=== PATIENT | female | born 1960 | race Caucasian/White ===

== ENCOUNTER 2017-05-15 16:27 | Observation (INO) | payer BC, OTHER ==
[2017-05-15] VITALS (8 sets, daily range): BP systolic 116–154; BP diastolic 62–75; PULSE 68–101; RESP 18–20; TEMP 96.7–97.9; O2SAT 98–100
[~2017-05-15] VITALS: Ht 154.9 cm; Wt 60.5 kg
[~2017-05-15 16:27] MED LIST: ALBUPOW9; DULE200A; MACR100C PO; OMPR20CCR PO; POLY119S PO; PROBCAP4 PO; PYRI200T4 PO; SUCR1TAB PO; TAMS0.4C67 PO
--- NOTE | 2017-05-15 16:45 | RADRPT ---
EXAM DATE/TIME: 05/15/2017 16:33 [facility] COMPARISON: No previous studies available for comparison. INDICATIONS : Stroke alert. Slurred speech, right sided headache, left arm and leg weakness and numbness. RADIATION DOSE: 61.38 CTDIvol (mGy) This report was called by Dr. Hughes to Dr. Gibson at 1642 MEDICAL HISTORY : Unable to obtain. SURGICAL HISTORY : Unable to obtain. ENCOUNTER: Initial ACUITY: 1 day PAIN SCALE: 6/10 LOCATION: cranial TECHNIQUE: Multiple contiguous axial images were obtained of the head. Using automated exposure control and adj ustment of the mA and/or kV according to patient size, radiation dose was kept as low as reasonably a chievable to obtain optimal diagnostic quality images. DICOM format image data is available electro nically for review and comparison. FINDINGS: CEREBRUM: The ventricles are normal for age. No evidence of midline shift, mass lesion, hemorrhage or acute in farction. No extra-axial fluid collections are seen. POSTERIOR FOSSA: The cerebellum and brainstem are intact. The 4th ventricle is midline. The cerebellopontine angle i s unremarkable. EXTRACRANIAL: The visualized portion of the orbits is intact. SKULL: The calvaria is intact. No evidence of skull fracture. CONCLUSION: Negative exam. No hemorrhage. Jose Antonio Hughes MD on May 15, 2017 at 16:41 Board Certified Radiologist. This report was verified electronically.
[2017-05-15 16:49] LABS: AUTOMATED NEUTROPHIL # 4.9 TH/MM3 (1.8-7.7); BASOPHIL % 0.5 % (0.0-2.0); EOSINOPHIL % 0.6 % (0.0-4.0); HEMATOCRIT 37.8 % (35.0-46.0); HEMOGLOBIN 12.6 GM/DL (11.6-15.3); LYMPH % 28.3 % (9.0-44.0); LYMPHOCYTE # 2.2 TH/MM3 (1.0-4.8); MEAN CELL VOLUME 89.3 FL (80.0-100.0); MEAN CORPUSCULAR HEMOGLOBIN 29.7 PG (27.0-34.0); MEAN CORPUSCULAR HGB CONC 33.3 % (32.0-36.0); MEAN PLATELET VOLUME 7.5 FL (7.0-11.0); MONO % 7.1 % (0.0-8.0); MONOCYTE # 0.5 TH/MM3 (0-0.9); NEUT % 63.5 % (16.0-70.0); PLATELET COUNT 255 TH/MM3 (150-450); RED BLOOD COUNT 4.24 MIL/MM3 (4.00-5.30); RED CELL DISTRIBUTION WIDTH 13.1 % (11.6-17.2); WHITE BLOOD COUNT 7.7 TH/MM3 (4.0-11.0)
--- NOTE | 2017-05-15 16:55 | PD ---
HPI Chief Complaint: Stroke alert Time Seen by Provider: 16:38 Travel History International Travel<30 days: No Contact w/Intl Traveler<30days: No History of Present Illness HPI 57yo F with PMH of asthma, migraine headache presents to the ED with c/o left arm and left leg weakness and numbness today. Also with left face numbness. Said she finish work at 3:30pm and she did not have these symptoms. Then she started having right sided headache and left sided weakness and numbness while driving. Pt said she had chest pain and sob since yesterday and it felt like her asthma exacerbation and she was using her inhaler. Denies any nausea, vomiting, abdominal pain. PFSH Past Medical History Asthma: Yes Diminished Hearing: No Gastrointestinal Disorders: Yes (IBS, Ischemic bowel ) GERD: Yes Kidney Stones: Yes Menopausal: Yes Past Surgical History Other Surgery: Yes (CYSTOPLASTY BLADDER SLING) Social History Alcohol Use: No Tobacco Use: No Substance Use: No Allergies-Medications (Allergen,Severity, Reaction): Coded Allergies: hydromorphone (Unverified Allergy, Severe, 05/15/17) morphine (Unverified Allergy, Severe, 05/15/17) diclofenac (Unverified Allergy, Intermediate, re: colitis, 05/15/17) etodolac (Unverified Allergy, Intermediate, re: colitis, 05/15/17) flurbiprofen (Unverified Allergy, Intermediate, re: colitis, 05/15/17) ibuprofen (Unverified Allergy, Intermediate, re: colitis, 05/15/17) indomethacin (Unverified Allergy, Intermediate, re: colitis, 05/15/17) ketoprofen (Unverified Allergy, Intermediate, re: colitis, 05/15/17) ketorolac (Unverified Allergy, Intermediate, re: colitis, 05/15/17) naproxen (Unverified Allergy, Intermediate, re: colitis, 05/15/17) oxaprozin (Unverified Allergy, Intermediate, re: colitis, 05/15/17) levofloxacin (Unverified Adverse Reaction, Intermediate, Joint Pain, ) metronidazole (Unverified Adverse Reaction, Intermediate, Joint Pain, ) Uncoded Allergies: NARCOTICS (Adverse Reaction, Intermediate, Hypotension, 10/08/12) pT STATES PASSES OUT, NAUSEA/VOMITING, LOW bp ALL NARCOTICS SPECIFICALLY Morphine, Dilaudid. Reported Meds & Prescriptions Reported Meds & Active Scripts Active Reported Potassium Chloride ER (Potassium Chloride) 8 Meq Cap 8 Meq PO DAILY Miralax Powder (Polyethylene Glycol 3350 Powder) 17 Gm Powd 17 Gm PO DAILY Mix and dissolve one measuring cap-ful (17 grams) in water or juice. Magnesium Citrate 100 Mg Tab 500 Mg PO DAILY PRN Citalopram (Citalopram Hydrobromide) 20 Mg Tab 20 Mg PO DAILY Nebusal Neb (Sodium Chloride) 3 % Neb 2 Ml NEB Q6HR NEB Proventil Hfa 6.7 GM Inh (Albuterol Sulfate) 90 Mcg/Act Aer 2 Puff INH Q4-6H PRN Review of Systems Except as stated in HPI: all other systems reviewed are Neg Physical Exam Narrative GENERAL: 57yo F in mild distress. SKIN: Focused skin assessment warm/dry. HEAD: Atraumatic. Normocephalic. EYES: Pupils equal and round. No scleral icterus. No injection or drainage. ENT: No nasal bleeding or discharge. Mucous membranes pink and moist. NECK: Trachea midline. No JVD. CARDIOVASCULAR: Regular rate and rhythm. No murmur appreciated. RESPIRATORY: No accessory muscle use. Clear to auscultation. Breath sounds equal bilaterally. GASTROINTESTINAL: Abdomen soft, non-tender, nondistended. MUSCULOSKELETAL: No obvious deformities. No clubbing. No cyanosis. No edema. NEUROLOGICAL: Awake and alert. Decreased sensation in left face. Decreased sensation in left arm and leg. +1 for sensation. Left arm had some effort against gravity +2. Left leg had some effort against gravity +2. Mild dysarthria +1. NIH stroke 6. PSYCHIATRIC: Appropriate mood and affect; insight and judgment normal. Data Data Last Documented VS Vital Signs Date Time Temp Pulse Resp B/P (MAP) Pulse Ox O2 Delivery O2 Flow Rate FiO2 05/15/17 18:37 100 21 05/15/17 18:36 79 18 144/70 (94) Room Air 05/15/17 16:[address] Brain W/O Iv Contrast(Rout) (05/15/17 16:31) Cta Brain W Iv Contrast W 3d (05/15/17 16:38) Cta Neck W Iv Contrast W 3d (05/15/17 16:38) Prothrombin Time / Inr (Pt) (05/15/17 16:38) Act Partial Throm Time (Ptt) (05/15/17 16:38) Complete Blood Count With Diff (05/15/17 16:38) Basic Metabolic Panel (Bmp) (05/15/17 16:38) Type And Screen (05/15/17 16:38) Electrocardiogram (05/15/17 ) Troponin I (05/15/17 16:38) Chest, Single Ap (05/15/17 ) Iodixanol 320 Inj (Rad Ct) (Visipaque 32 (05/15/17 17:01) Metoclopramide Inj (Reglan Inj) (05/15/17 17:30) Methylprednisolone So Succ Inj (Solumedr (05/15/17 18:30) Albuterol-Ipratropium Neb (Duoneb Neb) (05/15/17 18:30) Nih Stroke Scale - Nihss .On admission and discharge (05/15/17 18:27) Neuro Checks Q4H (05/15/17 18:27) Activity Bed Rest (05/15/17 18:27) Nursing Bedside Swallow Assess .ONCE (05/15/17 18:27) Scd Bilateral/Knee High CANDACE.QSHIFT (05/15/17 18:27) Diet Npo (05/15/17 Dinner) Hemoglobin (Hgb) A1c (05/15/17 18:27) Lipid Profile (05/16/17 06:00) Resp Oxygen Nc Stroke (05/15/17 ) ^ Hold Medication (05/15/17 18:27) Consult Neurology (05/15/17 ) Sodium Chloride 0.9% Flush (Ns Flush) (05/15/17 21:00) Sodium Chloride 0.9% Flush (Ns Flush) (05/15/17 18:30) Bedside Glucose CANDACE.CSUGAR (05/15/17 18:27) ^ Discontinue Insulin Orders (05/15/17 18:27) Insulin Aspart Supplemtl Scale (Novolog (05/15/17 21:00) Dextrose 50% In Joanna (Vial) Inj (D50w (Vi (05/15/17 18:30) Glucagon Inj (Glucagon Inj) (05/15/17 18:30) Consultative Sales Associate / Telemetry CANDACE.Q8H (05/15/17 18:27) Consult Stroke Navigator (05/15/17 ) Albuterol Hfa Inh (Proair Hfa Inh) (05/15/17 18:30) Citalopram (Celexa) (05/16/17 09:00) Polyethylene Glycol (Miralax) (05/16/17 09:00) Patient Own Medication (05/15/17 19:00) Albuterol-Ipratropium Neb (Duoneb Neb) (05/15/17 20:00) Prednisone (Deltasone) (05/15/17 21:00) Admit Order (Ed Use Only) (05/15/17 18:38) Labs Laboratory Tests Test 05/15/17 16:45 White Blood Count 7.7 TH/MM3 Red Blood Count 4.24 MIL/MM3 Hemoglobin 12.6 GM/DL Hematocrit 37.8 % Mean Corpuscular Volume 89.3 FL Mean Corpuscular Hemoglobin 29.7 PG Mean Corpuscular Hemoglobin Concent 33.3 % Red Cell Distribution Width 13.1 % Platelet Count 255 TH/MM3 Mean Platelet Volume 7.5 FL Neutrophils (%) (Auto) 63.5 % Lymphocytes (%) (Auto) 28.3 % Monocytes (%) (Auto) 7.1 % Eosinophils (%) (Auto) 0.6 % Basophils (%) (Auto) 0.5 % Neutrophils # (Auto) 4.9 TH/MM3 Lymphocytes # (Auto) 2.2 TH/MM3 Monocytes # (Auto) 0.5 TH/MM3 Eosinophils # (Auto) 0.0 TH/MM3 Basophils # (Auto) 0.0 TH/MM3 CBC Comment DIFF FINAL Differential Comment Prothrombin Time 9.4 SEC Prothromb Time International Ratio 0.9 RATIO Activated Partial Thromboplast Time 23.7 SEC Blood Urea Nitrogen 14 MG/DL Creatinine 0.68 MG/DL Random Glucose 88 MG/DL Calcium Level 9.0 MG/DL Sodium Level 137 MEQ/L Potassium Level 3.6 MEQ/L Chloride Level 103 MEQ/L Carbon Dioxide Level 22.9 MEQ/L Anion Gap 11 MEQ/L Estimat Glomerular Filtration Rate 89 ML/MIN Hemoglobin A1c 5.9 % Troponin I LESS THAN 0.02 NG/ML MDM Medical Decision Making Medical Screen Exam Complete: Yes Emergency Medical Condition: Yes Interpretation(s) EKG: NSR 58bpm. Normal axis. No ST segment elevation or depression. Differential Diagnosis CVA vs. complex migraine Narrative Course 57yo F with PMH of asthma and migraine here with complaint of right sided headache and then left side numbness and weakness. Pt came in as stroke alert and last normal was 3:30pm. Pt went to CT scan and CT brain negative. Discussed with Dr. Sofia and decided to start TPA. However, when I went to get consent, pt's symptoms improved rapidly. As I was explaining risks, benefits and alternatives, pt said her headache has improved and now able to feel left face, left arm and left leg. Strength in left arm and leg also improving and only mildly weaker than right side. Since symptoms are improving so rapidly, do not think TPA is needed at this time. Patient also agrees and does not want TPA. Updated Dr. Sofia of this and she said to place routine neurology consult and document. Labs reviewed, no leukocytosis. H/H normal. Troponin negative. CXR negative. CT brain negative. CTA neck showed mild soft atherosclerotic plaquing at origin of right internal carotid causing some focal mild narrowing. No significant stenosis. CTA head normal. Pt reevaluated at bedside and said her migraine is coming back so reglan ordered. She is not wheezing but wants nebulizing treatments so ordered them. Pt given reglan for headache. Discussed with Dr. Brian and accepted to her service. Critical Care Narrative Aggregate critical care time was 45 minutes. Time to perform other separately billable procedures was not included in the critical care time. My time did not include minutes spent treating any other patients simultaneously or on activities that did not directly contribute to the patient's treatment. The services I provided to this patient were to treat and/or prevent clinically significant deterioration that could result in: cardiovascular collapse or . I provided critical care services requiring my management, as noted below: Chart data review, documentation time, medication orders and management, vital sign assessments/reviewing monitor data, ordering and reviewing lab tests, ordering and interpreting/reviewing x-rays and diagnostic studies, care of the patient and discussion of the patient with the admitting physicians. Diagnosis Primary Impression: Migraine Qualified Codes: G43.909 - Migraine, unspecified, not intractable, without status migrainosus Additional Impression: TIA (transient ischemic attack) Qualified Codes: G45.9 - Transient cerebral ischemic attack, unspecified Admitting Information Admitting Physician Requests: Observation Yolanda Gibson DO May 15, 2017 16:55
[2017-05-15] MEDS ORDERED: IODIXANOL 320 MG/ML 10 ML VIAL (for Rad CT) IVCONTRAST ONE (17:01)
[2017-05-15 17:08] LABS: CHLORIDE 103 MEQ/L (98-107); SODIUM (NA) 137 MEQ/L (136-145)
[2017-05-15 17:11] LABS: BICARBONATE 22.9 MEQ/L (21.0-32.0); GLUCOSE,RANDOM 88 MG/DL (74-106)
[2017-05-15 17:12] LABS: BLOOD UREA NITROGEN 14 MG/DL (7-18)
[2017-05-15 17:15] LABS: CREATININE 0.68 MG/DL (0.50-1.00); GLOMERULAR FILTRATION RATE 89 ML/MIN (>89)
--- NOTE | 2017-05-15 17:18 | RADRPT ---
EXAM DATE/TIME: 05/15/2017 17:05 [facility] COMPARISON: CHEST SINGLE AP, March 21, 2015, 13:43. INDICATIONS : Chest pain and shortness of breath. MEDICAL HISTORY : Asthma. SURGICAL HISTORY : None. ENCOUNTER: Initial ACUITY: 1 day PAIN SCORE: 0/10 LOCATION: Bilateral chest FINDINGS: No new focal pleural or parenchymal opacities. The cardiomediastinal contours are unremarkable. Osse ous structures are intact. CONCLUSION: No acute abnormality or significant interval change. Clifton Pedroza MD on May 15, 2017 at 17:15 Board Certified Radiologist. This report was verified electronically.
--- NOTE | 2017-05-15 17:18 | RADRPT ---
EXAM DATE/TIME: 05/15/2017 16:48 [facility] COMPARISON: No previous studies available for comparison. INDICATIONS : Stroke alert. Slurred speech, right sided headache, left arm and leg weakness and numbness. IV CONTRAST: 85 cc Visipaque (iodixanol) IV ; Cumulative dose for multiple exams. RADIATION DOSE: 42.23 CTDIvol (mGy) ; Combined studies MEDICAL HISTORY : Unable to obtain. SURGICAL HISTORY : Unable to obtain. ENCOUNTER: Initial ACUITY: 1 day PAIN SCALE: 8/10 LOCATION: cranial TECHNIQUE: Volumetric scanning was performed using a multi-row detector CT scanner. The data was post processed with a variety of visualization algorithms including full volume maximum intensity projection, multi -planar sliding thin slab reformation, curved planar reformation, and surface rendering techniques. Using automated exposure control and adjustment of the mA and/or kV according to patient size, radiat ion dose was kept as low as reasonably achievable to obtain optimal diagnostic quality images. DICO M format image data is available electronically for review and comparison. FINDINGS: There is excellent visualization of the major intracranial arteries out to the second-order branch ve ssels. There is no evidence for aneurysm, vessel truncation or stenosis, and no evidence for vascula r malformation. There are bilateral patent posterior communicating arteries. CONCLUSION: Normal examination for a patient of this age. Suresh Da Silva MD on May 15, 2017 at 17:14 Board Certified Radiologist. This report was verified electronically.
[2017-05-15 17:19] LABS: TROPONIN I LESS THAN 0.02 NG/ML (0.02-0.05)
[2017-05-15] MEDS ORDERED: METOCLOPRAMIDE INJ 10 MG in SODIUM CHLORIDE 0.9% INJ 50 ML IV ONE (17:30)
--- NOTE | 2017-05-15 17:31 | RADRPT ---
EXAM DATE/TIME: 05/15/2017 16:48 [facility] COMPARISON: No previous studies available for comparison. INDICATIONS : Stroke alert. Slurred speech, right sided headache, left arm and leg weakness and numbness. IV CONTRAST: 85 cc Visipaque (iodixanol) IV ; Cumulative dose for multiple exams. RADIATION DOSE: 42.23 CTDIvol (mGy) ; Combined studies MEDICAL HISTORY : Unalbe to obtain. SURGICAL HISTORY : Unable to obtain. ENCOUNTER: Initial ACUITY: 1 day PAIN SCALE: 0/10 LOCATION: neck Elevated flow velocities and ICA/CCA ratios have been found to correlate with increased degrees of vessel stenosis, calculated as percentage of diameter relative to a normal segment of distal ICA/CCA. TECHNIQUE: Volumetric scanning was performed using a multirow detector CT scanner. The data was post processed with a variety of visualization algorithms including full-volume maximum intensity projection, multip lanar sliding thin-slab reformation, curved-planar reformation, and surface-rendering techniques. Us ing automated exposure control and adjustment of the mA and/or kV according to patient size, radiatio n dose was kept as low as reasonably achievable to obtain optimal diagnostic quality images. DICOM f ormat image data is available electronically for review and comparison. FINDINGS: AORTIC ARCH: There is a three-vessel origin of the great vessels from the aorta. No evidence of ostial narrowing. RIGHT CAROTID: The common carotid artery is intact. Focal mild narrowing at the origin of the right internal carotid artery. However, no high-grade stenosis is seen. The internal carotid artery is patent throughout it s extent.. The external carotid artery is intact. LEFT CAROTID: The common carotid artery is intact. The carotid bulb has a normal configuration without ulceration or narrowing. The focal calcified plaques at the carotid bifurcation and proximal left internal garcia tid artery. The internal carotid artery lumen is smooth without stenosis. The external carotid arter y is intact. VERTEBRALS: The vertebral arteries have a symmetric diameter. No stenotic lesions are seen. CONCLUSION: 1. Mild soft atherosclerotic plaquing at the origin of the right internal carotid causing some focal mild narrowing. No focal high-grade or significant stenosis is demonstrated. 2. Calcified plaques at the left carotid bifurcation and proximal left internal carotid artery withou t focal high-grade or significant stenosis. 1. Suresh Da Silva MD on May 15, 2017 at 17:26 Board Certified Radiologist. This report was verified electronically.
[2017-05-15] MEDS ORDERED: MIRA3350 PO (17:43)
[2017-05-15] MEDS ORDERED: MAGN100T2 PO (17:43)
[2017-05-15] MEDS ORDERED: ALBU6.7H INH (17:43)
[2017-05-15] MEDS ORDERED: POTA8CAP PO (17:43)
[2017-05-15] MEDS ORDERED: SODI3NEB NEB (17:43)
[2017-05-15] MEDS ORDERED: CITA20TA4 PO (17:43)
[2017-05-15 17:51] LABS: INTERNATIONAL NORMALIZED RATIO 0.9 RATIO; PROTHROMBIN TIME - PATIENT 9.4 SEC (9.8-11.6)
[2017-05-15] MEDS: RESP: ALBUTEROL 2.5 MG/IPRATROPIUM 0.5 MG NEB (SCH) INH ×2 (18:26→18:27)
[2017-05-15] MEDS ORDERED: SODIUM CHLORIDE 0.9% FLUSH 10 ML FLUSH IV FLUSH PRN (18:30)
[2017-05-15] MEDS ORDERED: ALBUTEROL SULFATE 90 MCG/ACT HFA 8 GM INHALER INH PRN (18:30)
[2017-05-15] MEDS ORDERED: DEXTROSE 50% IN WATER 50 ML VIAL(D50) IV PUSH PRN (18:30)
[2017-05-15] MEDS ORDERED: methylPREDNISolone SOD SUCC 125 MG/2 ML VIAL IV PUSH ONE (18:30)
[2017-05-15] MEDS ORDERED: GLUCAGON 1 MG/ML VIAL OTHER PRN (18:30)
[2017-05-15] MEDS: RESP: ALBUTEROL 2.5 MG/IPRATROPIUM 0.5 MG NEB (SCH) NEB (18:59)
[2017-05-15] MEDS ORDERED: MAGNESIUM CITRATE 500 MG PO PRN (19:00)
[2017-05-15 21:54] LABS: HEMOGLOBIN A1C 5.9 % (4.3-6.0)
[2017-05-15] MEDS: predniSONE 20 MG TAB PO SCH (22:21)
[2017-05-15] MEDS: SODIUM CHLORIDE 0.9% FLUSH 10 ML FLUSH IV FLUSH SCH (22:21)
[2017-05-15] MEDS: INSULIN ASPART SUPPLEMENTAL SCALE SQ SCH (22:29)
--- NOTE | 2017-05-15 23:49 | EKG ---
Date Performed: 05/15/2017 Time Performed: 17:15:20 PTAGE: 57 years EKG: Sinus rhythm NORMAL ECG PREVIOUS TRACING : 03/21/2015 13.47 Since the prior tracing, there has been no significant craig DOCTOR: Deonte Willard Interpretating Date/Time 05/15/2017 23:47:47
[2017-05-16] VITALS (9 sets, daily range): BP systolic 94–136; BP diastolic 57–71; PULSE 74–112; RESP 19–20; TEMP 96.4–97.8; O2SAT 95–99
[2017-05-16] MEDS: RESP: ALBUTEROL 2.5 MG/IPRATROPIUM 0.5 MG NEB (SCH) NEB ×3 (07:39→20:35)
[2017-05-16] MEDS: INSULIN ASPART SUPPLEMENTAL SCALE SQ SCH ×4 (08:00→21:25)
--- NOTE | 2017-05-16 10:02 | RADRPT ---
EXAM DATE/TIME: 05/16/2017 09:28 [facility] COMPARISON: No previous studies available for comparison. INDICATIONS : CVA. Left sided numbness now resolved. MEDICAL HISTORY : Gastroesophageal reflux disease. Asthma. SURGICAL HISTORY : Bladder sling. Left bicep. ENCOUNTER: Initial ACUITY: 2 day PAIN SCORE: 0/10 LOCATION: head TECHNIQUE: Multiplanar, multisequence MRI of the brain was performed without contrast. FINDINGS: CEREBRUM: The ventricles are normal for age. No evidence of midline shift, mass lesion, hemorrhage or acute in farction. No extraaxial fluid collections are seen. The pituitary gland and suprasellar cistern are normal in configuration. WHITE MATTER: Minimal white matter changes. POSTERIOR FOSSA: The cerebellum and brainstem are intact. The 4th ventricle is midline. The cerebellopontine angle is unremarkable. The cerebellar tonsils are normal in position. DIFFUSION IMAGING: No focal areas of restricted diffusion are seen. No evidence of acute infarction. EXTRACRANIAL: The visualized portions of the orbits and paranasal sinuses are unremarkable. CONCLUSION: Minimal, chronic white matter changes. Otherwise negative. Jose Antonio Hughes MD on May 16, 2017 at 9:55 Board Certified Radiologist. This report was verified electronically.
[2017-05-16] MEDS: POLYETHYLENE GLYCOL 17 GM PKG PO SCH (11:03)
[2017-05-16] MEDS: CITALOPRAM HYDROBROMIDE 20 MG TAB PO SCH (11:04)
[2017-05-16] MEDS: predniSONE 20 MG TAB PO SCH ×2 (11:04→21:26)
[2017-05-16] MEDS: SODIUM CHLORIDE 0.9% FLUSH 10 ML FLUSH IV FLUSH SCH ×2 (11:04→21:24)
[2017-05-16 12:11] LABS: CHOLESTEROL/ HDL RATIO 2.59 RATIO; HDL CHOLESTEROL 96.8 MG/DL (40.0-60.0)
[2017-05-16] MEDS ORDERED: ASPIRIN EC 325 MG TABEC PO SCH (17:45)
[2017-05-16] MEDS: ASPIRIN EC 81 MG TABEC PO SCH (18:22)
[2017-05-16 19:20] LABS: ALT (GPT) 18 U/L (10-53); AST (GOT) 9 U/L (15-37); C-REACTIVE PROTEIN LESS THAN 0.29 MG/DL (0.00-0.30)
--- NOTE | 2017-05-16 19:51 | HHI.HP ---
[facility] Primary Care Physician Marcos Ellis, Admission Diagnosis TIA vs. complex migraine Diagnoses: Travel History International Travel<30 Days: No Contact w/Intl Traveler <30 Da: No Traveled to Known Affected Are: No History of Present Illness Ms. Ceja is a 57 year old female. She is in the hospital secondary to an acute onset of left arm and leg weakness. This persisted most of the night but has resolved by the time she is seen today. She has a history of atypical migraines with transient blindness that lasted a few minutes. She's never had such a degree of neurological deficit for migraines before. She reports that she was driving and she had an acute onset of a headache which shows not typical of onset of her migraines. After that she had a gradual onset of left arm and leg weakness which ended up resulting in facility. Imaging showed no signs of bleed, tumor, or stroke, including MRI of brain. Etiology may be atypical migraine versus TIA. No pain or headache described and patient is visited today. No persistence of neurological deficit. Review of Systems Constitutional: DENIES: Fatigue, Fever, Night Sweats Eyes: DENIES: Blurred vision, Diplopia, Eye inflammation Ears, nose, mouth, throat: DENIES: Tinnitus, Hearing loss, Vertigo Respiratory: DENIES: Cough, Wheezing, Shortness of breath Cardiovascular: DENIES: Chest pain, Palpitations, Syncope Gastrointestinal: DENIES: Abdominal pain, Black stools, Bloody stools Musculoskeletal: DENIES: Joint pain, Muscle aches, Stiffness, Joint Swelling Integumentary: DENIES: Abnormal pigmentation, Pruritus, Rash, Nail changes Hematologic/lymphatic: DENIES: Bruising, Lymphadenopathy Immunologic/allergic: DENIES: Eczema, Urticaria Neurologic: COMPLAINS OF: Headache, Localized weakness, Poor Balance, DENIES: Abnormal gait, Paresthesias Psychiatric: DENIES: Anxiety, Confusion, Hallucinations Past Family Social History Past Medical History Asthma Irritable bowel syndrome Ischemic bowel history Gastroesophageal reflux disease Nephrolithiasis Past Surgical History Cystoplasty/sling Reported Medications Reported Meds & Active Scripts Active Reported Potassium Chloride ER (Potassium Chloride) 8 Meq Cap 8 Meq PO DAILY Miralax Powder (Polyethylene Glycol 3350 Powder) 17 Gm Powd 17 Gm PO DAILY Mix and dissolve one measuring cap-ful (17 grams) in water or juice. Magnesium Citrate 100 Mg Tab 500 Mg PO DAILY PRN Citalopram (Citalopram Hydrobromide) 20 Mg Tab 20 Mg PO DAILY Nebusal Neb (Sodium Chloride) 3 % Neb 2 Ml NEB Q6HR NEB Proventil Hfa 6.7 GM Inh (Albuterol Sulfate) 90 Mcg/Act Aer 2 Puff INH Q4-6H PRN Allergies: Coded Allergies: hydromorphone (Unverified Allergy, Severe, 05/15/17) morphine (Unverified Allergy, Severe, 05/15/17) diclofenac (Unverified Allergy, Intermediate, re: colitis, 05/15/17) etodolac (Unverified Allergy, Intermediate, re: colitis, 05/15/17) flurbiprofen (Unverified Allergy, Intermediate, re: colitis, 05/15/17) ibuprofen (Unverified Allergy, Intermediate, re: colitis, 05/15/17) indomethacin (Unverified Allergy, Intermediate, re: colitis, 05/15/17) ketoprofen (Unverified Allergy, Intermediate, re: colitis, 05/15/17) ketorolac (Unverified Allergy, Intermediate, re: colitis, 05/15/17) naproxen (Unverified Allergy, Intermediate, re: colitis, 05/15/17) oxaprozin (Unverified Allergy, Intermediate, re: colitis, 05/15/17) levofloxacin (Unverified Adverse Reaction, Intermediate, Joint Pain, ) metronidazole (Unverified Adverse Reaction, Intermediate, Joint Pain, ) Uncoded Allergies: NARCOTICS (Adverse Reaction, Intermediate, Hypotension, 10/08/12) pT STATES PASSES OUT, NAUSEA/VOMITING, LOW bp ALL NARCOTICS SPECIFICALLY Morphine, Dilaudid. Active Ordered Medications Administered Medications Medications (Trade) Dose Ordered Sig/El Route PRN Reason Start Time Stop Time Status Last Admin Dose Admin Sodium Chloride (NS Flush) 2 ml BID IV FLUSH 05/15/17 21:00 05/16/17 11:04 Insulin Aspart (NovoLOG SUPPLEMENTAL SCALE) 1 ACHS SQ 05/15/17 21:00 05/15/17 22:29 Citalopram Hydrobromide (CeleXA) 20 mg DAILY PO 05/16/17 09:00 05/16/17 11:04 Polyethylene Glycol (Miralax) 17 gm DAILY PO 05/16/17 09:00 05/16/17 11:03 Albuterol/ Ipratropium (Duoneb Neb) 1 ampule Q6HR WHILE AWAKE NEB NEB 05/15/17 20:00 05/16/17 14:27 Prednisone (Deltasone) 20 mg BID PO 05/15/17 21:00 05/16/17 11:04 Aspirin (Ecotrin Ec) 81 mg DAILY PO 05/16/17 18:11 05/16/17 18:22 Family History Strokes in mother and sister Social History No smoking No alcohol abuse No drug abuse Physical Exam Vital Signs Vital Signs Date Time Temp Pulse Resp B/P (MAP) Pulse Ox O2 Delivery O2 Flow Rate FiO2 05/16/17 16:00 97.2 112 20 94/68 (77) 96 05/16/17 11:21 96.9 90 19 136/71 (92) 95 05/16/17 08:00 97.8 100 20 125/64 (84) 99 05/16/17 07:42 98 21 05/16/17 04:00 96.7 86 20 117/59 (78) 96 05/16/17 00:00 96.4 74 20 122/57 (78) 96 05/15/17 22:41 82 18 98 05/15/17 22:32 96.7 101 20 122/67 (85) 98 05/15/17 22:12 84 18 124/68 (86) 98 Room Air Physical Exam GENERAL: NAD, A&Ox3 HEAD: Normocephalic. NECK: Supple, trachea midline. No lymphadenopathy. EYES: No scleral icterus. No injection or drainage. CARDIOVASCULAR: Regular rate and rhythm without murmurs, gallops, or rubs. RESPIRATORY: Breath sounds equal bilaterally. No accessory muscle use. GASTROINTESTINAL: Abdomen soft, non-tender, nondistended. MUSCULOSKELETAL: No cyanosis, or edema. SKIN: Warm and dry. NEURO: No focal neurological deficitis. Laboratory Laboratory Tests Test 05/16/17 06:30 05/16/17 18:30 Triglycerides Level 36 Cholesterol Level 251 LDL Cholesterol 147 HDL Cholesterol 96.8 Cholesterol/HDL Ratio 2.59 Aspartate Amino Transf (AST/SGOT) 9 Alanine Aminotransferase (ALT/SGPT) 18 C-Reactive Protein LESS THAN 0.29 Thyroid Stimulating Hormone 3rd Gen 0.355 Result Diagram: 05/15/17164405/15/171644 [facility] Risk Assessment: No/Low Risk (score <= 1) Caprini Risk Assessment Model Point Value = 1 Point Value = 2 Point Value = 3 Point Value = 5 Age 41-60 Minor surgery BMI > 25 kg/m2 Swollen legs Varicose veins or History of unexplained or recurrent spontaneous Oral contraceptives or hormone replacement Sepsis (< 1 month) Serious lung disease, including pneumonia (< 1 month) Abnormal pulmonary function Acute myocardial infarction Congestive heart failure (< 1 month) History of inflammatory bowel disease Medical patient at bed rest Age 61-74 Arthroscopic surgery Major open surgery (> 45 min) Laparoscopic surgery (> 45 min) Malignancy Confined to bed (> 72 hours) Immobilizing plaster cast Central venous access Age >= 75 History of VTE Family history of VTE Factor V Leiden Prothrombin [id number] Lupus anticoagulant Anticardiolipin antibodies Elevated serum homocysteine Heparin-induced thrombocytopenia Other congenital or acquired thrombophilia Stroke (< 1 month) Elective arthroplasty Hip, pelvis, or leg fracture Acute spinal cord injury (< 1 month) Prophylaxis Regimen Total Risk Factor Score Risk Level Prophylaxis Regimen 0-1 Low Early ambulation 2 Moderate Order ONE of the following: *Sequential Compression Device (SCD) *Heparin 5000 units SQ BID 3-4 Higher Order ONE of the following medications: *Heparin 5000 units SQ TID *Enoxaparin/Lovenox 40 mg SQ daily (WT < 150 kg, CrCl > 30 mL/min) *Enoxaparin/Lovenox 30 mg SQ daily (WT < 150 kg, CrCl > 10-29 mL/min) *Enoxaparin/Lovenox 30 mg SQ BID (WT < 150 kg, CrCl > 30 mL/min) AND/OR *Sequential Compression Device (SCD) 5 or more Highest Order ONE of the following medications: *Heparin 5000 units SQ TID (Preferred with Epidurals) *Enoxaparin/Lovenox 40 mg SQ daily (WT < 150 kg, CrCl > 30 mL/min) *Enoxaparin/Lovenox 30 mg SQ daily (WT < 150 kg, CrCl > 10-29 mL/min) *Enoxaparin/Lovenox 30 mg SQ BID (WT < 150 kg, CrCl > 30 mL/min) AND *Sequential Compression Device (SCD) Assessment and Plan Problem List: (1) Migraine ICD Code: G43.909 - Migraine, unspecified, not intractable, without status migrainosus Status: Acute (2) TIA (transient ischemic attack) ICD Code: G45.9 - Transient cerebral ischemic attack, unspecified Status: Acute Assessment and Plan 57-year-old female admitted secondary to TIA versus complex migraine with left- sided weakness TIA versus Migraine Left-sided weakness Neurology following DANIELLE planned Daily aspirin Monitor for any recurrence of symptoms MRI is negative for CVA Asthma Irritable bowel syndrome Ischemic bowel history No exacerbations Follow clinically Gastroesophageal reflux disease Nephrolithiasis Asymptomatic DVT prophylaxis SCDs Avoiding strong blood thinners for now given unclear etiology of neurologic deficit including TIA Problem Qualifiers (1) Migraine: Qualified Codes: G43.909 - Migraine, unspecified, not intractable, without status migrainosus (2) TIA (transient ischemic attack): Qualified Codes: G45.9 - Transient cerebral ischemic attack, unspecified Poncho Kolb MD May 16, 2017 19:51
--- NOTE | 2017-05-16 20:03 | MB ---
cc: Juvenal Pimentel MD, David J MD DATE OF CONSULT: 05/16/2017 HISTORY OF PRESENT ILLNESS: A 57-year-old right-handed woman with history of peptic ulcer disease, irritable bowel with constipation. She had 1 miscarriage many years ago. No blood clots. She has had headaches since her 20s. She had 2 episodes where she went blind and black in her vision for about 3 minutes. Her headache used come on with bilateral scintillations, and she went to a chiropractor because she was having headaches fairly frequently in 2016. When she went to the chiropractor, she has not had hardly any headaches ever since. The headache is usually bifrontal and temporal. She has never had any asymmetrical weakness or numbness with them, but yesterday she was driving, had an onset of a right-sided headache which was fairly severe and lasted about 12 hours. Then she had chest pain at the onset of it also and then numbness on the left side and weakness on the left side, which she said she was flaccid on the left. It seemed to evidently come back sometime in the next 12 hours and, by this morning, she was back to normal. She had some chest pain and shortness of breath. She felt like it was increased asthma. She came into the ER. They were going to do tPA. When they went to consent the patient, her symptoms rapidly improved. The headache then got better. She was able to feel the left face, arm and leg. Strength in her left arm and leg also started to improve, only mildly weaker on the right side. REVIEW OF SYSTEMS: She denies any hypertension, diabetes, hypercholesterolemia, [place], CABG, cardiac arrhythmia, stent, angioplasty, AFib, coumadin, renal, hepatic or pulmonary disease, thyroid disease, lupus, ulcer, cancer, seizure. SOCIAL HISTORY: She is not a smoker or drinker. She lives by herself. FAMILY HISTORY: Positive for cancer in her father. Negative for seizure, negative for stroke. Positive for CAD in her mother. Positive for stroke in her sister when she was about 58 and her mother when she was older. Positive for migraine in her mother, her sisters and herself. ALLERGIES: SHE IS ALLERGIC TO HYDROMORPHONE, MORPHINE, DICLOFENAC, ANY KIND OF IBUPROFEN, NSAIDS, LEVOFLOXACIN, METRONIDAZOLE, NARCOTICS. MEDICATIONS: Proventil, citalopram 20 mg a day, magnesium, potassium. PHYSICAL EXAMINATION: She has been in sinus rhythm, afebrile, 112, 20, 94/68. Initially her blood pressure was 151/72. NECK: There were no carotid or vertebral bruits. HEART: Regular rhythm. I did not detect a murmur. NEUROLOGIC: Pupils are equal. Visual arriaga are full. Extraocular movements intact without nystagmus. Face is symmetric with normal sensation. Her temporals are nontender bilaterally. Tongue was midline. There is no drift. She had normal strength in upper and lower extremities bilaterally. DTRs are 2+ and symmetric throughout. Toes are downgoing bilaterally. Pinprick is intact throughout. She is not ataxic on finger to nose. There is no ankle clonus. Gait is steady. Speech is fluent. IMAGING STUDIES: MRI of the brain does not show any acute infarcts nor any old infarcts. There are 2 small tiny white matter changes on her left hemisphere. She had a CTA of the neck and [place] which showed some mild right soft plaque on the carotid on the right. CT of the head was read as normal. CT scan of the brain was read as normal. CTAs do look negative. Review of the CTA: The CTA appears to show an intact transverse sinus and posterior sagittal sinus, although we do not get quite to see all the way to the top. LABORATORY DATA: CBC was normal. UA negative. Coags normal. Basic metabolic profile was normal. Hemoglobin A1c, calcium, troponin normal. LDL cholesterol is 147. IMPRESSION: Quite possibly this was a complicated migraine, especially since it lasted so long with a negative MRI. Of interest is she seemed to get better in the emergency room and I am not sure if that happened when they talked about the tPA or not. What I have recommended is to get a transesophageal echocardiogram, Holter monitor, hypercoagulable screen and some additional blood work. Have cardiology see her with the chest pain, and I will be following up with you in the hospital. We will start her on a baby aspirin a day and she needs to get started on a statin. Just for completeness sake, do an MR renogram. MD INGA Sam//jake , 05:34 PM , 07:47 PM
[2017-05-16] MEDS ORDERED: ATORVASTATIN 40 MG TAB PO SCH (21:00)
[2017-05-16 22:04] LABS: FOLATE 14.5 NG/ML (3.1-17.5); FREE T4 0.93 NG/DL (0.76-1.46)
[2017-05-17] VITALS (12 sets, daily range): BP systolic 113–136; BP diastolic 64–68; PULSE 77–116; RESP 18–20; TEMP 96.3–98.3; O2SAT 97–98
[2017-05-17] MEDS ORDERED: MENTHOL LOZENGE BUCCAL ONE (00:30)
[2017-05-17] MEDS ORDERED: diphenhydrAMINE HCL 25 MG CAP PO ONE (01:00)
[2017-05-17] MEDS: SODIUM CHLOR 0.9% 1000 ML INJ 1,000 ML IV SCH ×2 (06:43→06:52)
[2017-05-17] MEDS: SODIUM CHLORIDE 0.9% FLUSH 10 ML FLUSH IV FLUSH SCH ×2 (07:55→20:03)
[2017-05-17] MEDS: INSULIN ASPART SUPPLEMENTAL SCALE SQ SCH ×2 (08:00→12:00)
[2017-05-17] MEDS: ASPIRIN EC 81 MG TABEC PO SCH (08:04)
[2017-05-17] MEDS: CITALOPRAM HYDROBROMIDE 20 MG TAB PO SCH (08:05)
[2017-05-17] MEDS: POLYETHYLENE GLYCOL 17 GM PKG PO SCH (08:06)
[2017-05-17] MEDS: predniSONE 20 MG TAB PO SCH ×2 (08:06→20:02)
[2017-05-17] MEDS: RESP: ALBUTEROL 2.5 MG/IPRATROPIUM 0.5 MG NEB (SCH) NEB ×2 (08:21→14:16)
[2017-05-17 09:40] LABS: HEMATOCRIT 37.1 % (35.0-46.0); HEMOGLOBIN 12.2 GM/DL (11.6-15.3); MEAN CELL VOLUME 89.7 FL (80.0-100.0); MEAN CORPUSCULAR HEMOGLOBIN 29.5 PG (27.0-34.0); MEAN CORPUSCULAR HGB CONC 32.9 % (32.0-36.0); MEAN PLATELET VOLUME 7.7 FL (7.0-11.0); PLATELET COUNT 234 TH/MM3 (150-450); RED BLOOD COUNT 4.13 MIL/MM3 (4.00-5.30); RED CELL DISTRIBUTION WIDTH 13.3 % (11.6-17.2); WHITE BLOOD COUNT 12.5 TH/MM3 (4.0-11.0)
[2017-05-17] MEDS ORDERED: INFLUENZA VIRUS VACCINE (QUADRIVALENT) 0.5 ML SYR IM ONE (10:00)
[2017-05-17 10:15] LABS: CHLORIDE 105 MEQ/L (98-107); SODIUM (NA) 140 MEQ/L (136-145)
[2017-05-17 10:18] LABS: CALCIUM 8.6 MG/DL (8.5-10.1)
[2017-05-17 10:19] LABS: ALBUMIN 3.3 GM/DL (3.4-5.0); BICARBONATE 23.9 MEQ/L (21.0-32.0); BLOOD UREA NITROGEN 14 MG/DL (7-18); GLUCOSE,RANDOM 147 MG/DL (74-106)
[2017-05-17 10:22] LABS: ALT (GPT) 16 U/L (10-53); AST (GOT) 12 U/L (15-37); CREATININE 0.72 MG/DL (0.50-1.00); GLOMERULAR FILTRATION RATE 83 ML/MIN (>89)
[2017-05-17 10:23] LABS: TOTAL BILIRUBIN ADULT 0.3 MG/DL (0.2-1.0); TOTAL PROTEIN 6.7 GM/DL (6.4-8.2)
[2017-05-17 10:25] LABS: ALKALINE PHOSPHATASE 69 U/L (45-117)
--- NOTE | 2017-05-17 15:16 | HHI.PR ---
Subjective Remarks Patient had an allergic reaction to Lipitor overnight. This has been discontinued. She says she also tried on enteric-coated aspirin at a separate time and had GI upset including abdominal pain, cramping, and dyspepsia. She does not wish to continue the aspirin. DANIELLE pending. Objective Vital Signs Date Time Temp Pulse Resp B/P (MAP) Pulse Ox O2 Delivery O2 Flow Rate FiO2 05/17/17 12:00 97.6 80 18 127/65 (85) 97 05/17/17 08:20 98 21 05/17/17 08:00 97.9 82 18 113/67 (82) 97 05/17/17 04:00 96.3 84 20 136/64 (88) 97 05/17/17 00:00 96.8 100 20 125/64 (84) 98 05/16/17 23:00 90 05/16/17 20:35 97 21 05/16/17 20:00 96.4 94 20 122/57 (78) 95 05/16/17 16:00 97.2 112 20 94/68 (77) 96 I/O 05/16/17 05/16/17 05/16/17 05/17/17 05/17/17 05/17/17 07:00 15:00 23:00 07:00 15:00 23:00 Intake Total 120 ml 240 ml Balance 120 ml 240 ml Intake Oral 120 ml 240 ml # Voids 3 Result Diagram: 05/17/1757 05/17/17 0857 Objective Remarks GENERAL: NAD, A&Ox3 HEAD: Normocephalic. NECK: Supple, trachea midline. No lymphadenopathy. EYES: No scleral icterus. No injection or drainage. CARDIOVASCULAR: Regular rate and rhythm without murmurs, gallops, or rubs. RESPIRATORY: Breath sounds equal bilaterally. No accessory muscle use. GASTROINTESTINAL: Abdomen soft, non-tender, nondistended. MUSCULOSKELETAL: No cyanosis, or edema. SKIN: Warm and dry. NEURO: No focal neurological deficitis. A/P Problem List: (1) Migraine ICD Code: G43.909 - Migraine, unspecified, not intractable, without status migrainosus Status: Acute (2) TIA (transient ischemic attack) ICD Code: G45.9 - Transient cerebral ischemic attack, unspecified Status: Acute Assessment and Plan 57-year-old female admitted secondary to TIA versus complex migraine with left- sided weakness DANIELLE pending. Allergic reaction to Lipitor, Lipitor discontinued. Severe GI symptoms with use of aspirin. Patient declines further use of aspirin. Continue to monitor and Holter monitor. TIA versus Migraine Left-sided weakness Neurology following DANIELLE planned Daily aspirin Monitor for any recurrence of symptoms MRI is negative for CVA Patient declines aspirin Statin allergy present Asthma Irritable bowel syndrome Ischemic bowel history Exacerbations overnight with use of aspirin Follow clinically Gastroesophageal reflux disease Nephrolithiasis Asymptomatic DVT prophylaxis SCDs Avoiding strong blood thinners for now given unclear etiology of neurologic deficit including TIA Problem Qualifiers (1) Migraine: Qualified Codes: G43.909 - Migraine, unspecified, not intractable, without status migrainosus (2) TIA (transient ischemic attack): Qualified Codes: G45.9 - Transient cerebral ischemic attack, unspecified Poncho Kolb MD May 17, 2017 15:16
--- NOTE | 2017-05-17 17:14 | ECHRPT ---
Indication: CVA/TIA CONCLUSIONS Normal left ventricular size. The left ventricular systolic function is hyperdynamic with an estimated ejection fraction in the ra nge of 65- 70%. Wall thickness is normal. The left ventricular systolic function is grossly normal on limited imaging. Thickened atrial septum is noted with morphological features most consistent with a lipomatous atria l septum. Trivial pulmonary valve regurgitation. BP: 127 / 65 HR: 116 Rhythm: Sinus MEASUREMENTS (Male / Female) Normal Values Technical Quality:Fair 2D ECHO LV Diastolic Diameter PLAX 3.7 cm 4.2 - 5.9 / 3.9 - 5.3 cm LV Systolic Diameter PLAX 2.3 cm IVS Diastolic Thickness 0.8 cm 0.6 - 1.0 / 0.6 - 0.9 cm LVPW Diastolic Thickness 0.8 cm 0.6 - 1.0 / 0.6 - 0.9 cm LV Relative Wall Thickness 0.4 RV Internal Dim ED PLAX 2.0 cm LVOT Diameter 1.8 cm Aortic Root Diameter 2.6 cm LA Systolic Diameter LX 2.6 cm 3.0 - 4.0 / 2.7 - 3.8 cm M-MODE AV Cusp Separation MM 1.6 cm DOPPLER AV Peak Velocity 128.0 cm/s AV Peak Gradient 6.6 mmHg AV Mean Gradient 4.0 mmHg AV Velocity Time Integral 25.1 cm LVOT Peak Velocity 119.0 cm/s LVOT Peak Gradient 5.7 mmHg LVOT Velocity Time Integral 21.2 cm AV Area Cont Eq vti 2.1 cm AV Area Cont Eq pk 2.4 cm Mitral E Point Velocity 91.3 cm/s Mitral A Point Velocity 65.6 cm/s Mitral E to A Ratio 1.4 LV E' Lateral Velocity 9.4 cm/s Mitral E to LV E' Lateral Ratio 9.8 LV E' Septal Velocity 8.6 cm/s Mitral E to LV E' Septal Ratio 10.6 TR Peak Velocity 186.0 cm/s TR Peak Gradient 13.8 mmHg Right Atrial Pressure 10.0 mmHg Pulmonary Artery Systolic Pressu 23.8 mmHg Right Ventricular Systolic Press 23.8 mmHg PV Peak Velocity 68.4 cm/s PV Peak Gradient 1.9 mmHg FINDINGS LEFT VENTRICLE Normal left ventricular size. Wall thickness is normal. The left ventricular systolic function is hyperdynamic with an estimated ejection fraction in the ra nge of 65- 70%. RIGHT VENTRICLE Normal right ventricular size and systolic function. LEFT ATRIUM The left atrial size is normal. RIGHT ATRIUM The right atrial size is normal. ATRIAL SEPTUM Thickened atrial septum is noted with morphological features most consistent with a lipomatous atria l septum. AORTA The aortic root and proximal ascending aorta are normal in size on limited imaging. MITRAL VALVE Structurally normal mitral valve. No mitral valve stenosis or regurgitation. AORTIC VALVE Trileaflet aortic valve. No aortic valve stenosis or regurgitation. TRICUSPID VALVE Structurally normal tricuspid valve. No tricuspid valve stenosis or regurgitation. PULMONARY VALVE Trivial pulmonary valve regurgitation. VESSELS The inferior vena cava is normal in size. PERICARDIUM No pericardial effusion. Richar Cruz MD (Electronically Signed) Final Date:17 May 2017 17:13
--- NOTE | 2017-05-17 18:50 | HHI.PR ---
Subjective Remarks sr Objective Vital Signs Date Time Temp Pulse Resp B/P (MAP) Pulse Ox O2 Delivery O2 Flow Rate FiO2 05/17/17 16:00 97.8 100 18 113/68 (83) 98 05/17/17 15:01 116 05/17/17 12:00 97.6 80 18 127/65 (85) 97 05/17/17 08:20 98 21 05/17/17 08:00 97.9 82 18 113/67 (82) 97 05/17/17 07:01 96 05/17/17 04:00 96.3 84 20 136/64 (88) 97 05/17/17 00:00 96.8 100 20 125/64 (84) 98 05/16/17 23:00 90 05/16/17 20:35 97 21 05/16/17 20:00 96.4 94 20 122/57 (78) 95 I/O 05/16/17 05/16/17 05/16/17 05/17/17 05/17/17 05/17/17 07:00 15:00 23:00 07:00 15:00 23:00 Intake Total 120 ml 240 ml 900 ml Balance 120 ml 240 ml 900 ml Intake Oral 120 ml 240 ml IV Total 900 ml # Voids 3 6 Result Diagram: 05/17/17 0857 05/17/17 0857 Objective Remarks awake nl speech no new spells Assessment and Plan Assessment and Plan imp asa gi upset statin rash and voice change echo lipomatous septum for humble labs neg so far ldl inc for humble fu eeg Juvenal Pimentel MD May 17, 2017 18:50
[2017-05-18] VITALS (10 sets, daily range): BP systolic 121–127; BP diastolic 66–72; PULSE 71–90; RESP 16–18; TEMP 97.6–98.6; O2SAT 96–98
--- NOTE | 2017-05-18 07:07 | MG ---
cc: Juvenal Pimentel MD, David J MD [id number] INDICATIONS: White matter changes, right-sided headache, chest pain. MEDICATIONS: Benadryl, Celexa, INTERPRETATION: A 10 Hz symmetric 60 microvolt posterior rhythm is seen. The recording overall is synchronous and symmetric. No hemisphere asymmetries are noted. No epileptiform or seizure activity is seen. Photic stimulation is performed at the end of the recording without significant posterior driving. IMPRESSION: A normal awake electroencephalogram. No evidence for a focal or diffuse abnormality. Juvenal Estrada. MD Margarito DJM/SA/ , 05:56 PM , 11:56 PM
[2017-05-18] MEDS: RESP: ALBUTEROL 2.5 MG/IPRATROPIUM 0.5 MG NEB (SCH) NEB ×2 (09:18→12:17)
--- NOTE | 2017-05-18 09:53 | HHI.PR ---
Subjective Remarks This is a pleasant 57 y/o female who came to ER with acute onset of left arm and leg weakness, as per Neurology specialist ASA gave GI upset and Statin produce rash and voice change, Echo showed lipomatous septum for humble, laboratory Negative LDL recommended for HUMBLE. follow up HUMBLE. not yet cleared by Neurology specialist for discharge. she had allergic reaction to Lipitor and was discontinued. 05/18: Stable in her bedroom, already seen by her erosion control specialist Doctor Anthony status post EEG was normal HUMBLE found small PFO with left to right shunt not right to left, Can not tolerate Statin or Aspirin, recommended to go on Plavix by Neurology doctor Margarito also recommended to discharge Home. and follow in his office. no nausea or vomit or diarrhea. Objective Vital Signs Date Time Temp Pulse Resp B/P (MAP) Pulse Ox O2 Delivery O2 Flow Rate FiO2 05/18/17 09:21 97 21 05/18/17 07:22 86 05/18/17 07:22 97 Room Air 05/18/17 07:22 97.6 86 16 121/69 (86) 97 05/18/17 06:00 81 05/18/17 05:00 76 05/18/17 04:00 98.6 77 18 127/72 (90) 97 05/18/17 04:00 Room Air 05/18/17 04:00 77 05/18/17 03:00 82 05/18/17 02:00 81 05/18/17 01:00 79 05/18/17 00:00 98.0 71 18 122/71 (88) 96 05/18/17 00:00 77 05/18/17 00:00 Room Air 05/17/17 23:00 82 05/17/17 22:00 88 05/17/17 21:00 80 05/17/17 20:00 98.3 77 20 120/65 (83) 98 05/17/17 20:00 77 05/17/17 16:00 97.8 100 18 113/68 (83) 98 05/17/17 15:01 116 05/17/17 12:00 97.6 80 18 127/65 (85) 97 I/O 05/17/17 05/17/17 05/17/17 05/18/17 05/18/17 05/18/17 07:00 15:00 23:00 07:00 15:00 23:00 Intake Total 240 ml 900 ml 240 ml Balance 240 ml 900 ml 240 ml Intake Oral 240 ml 240 ml IV Total 900 ml # Voids 3 6 3 # Bowel Movements 0 Result Diagram: 05/17/17 0857 05/17/17 0857 Imaging Last Impressions Brain MRI 05/16/17 192 Signed Impressions: Service Date/Time: Tuesday, May 16, 2017 09:28 - CONCLUSION: Minimal, chronic white matter changes. Otherwise negative. Jose Antonio Hughes MD Neck CTA 05/15/17 1638 Signed Impressions: Service Date/Time: May 16:48 - CONCLUSION: 1. Mild soft atherosclerotic plaquing at the origin of the right internal carotid causing some focal mild narrowing. No focal high-grade or significant stenosis is demonstrated. 2. Calcified plaques at the left carotid bifurcation and proximal left internal carotid artery without focal high-grade or significant stenosis. 1. Suresh Da Silva MD Head CTA 05/15/178 Signed Impressions: Service Date/Time: May 16:48 - CONCLUSION: Normal examination for a patient of this age. Suresh Da Silva MD Head CT 05/15/17 1631 Signed Impressions: Service Date/Time: May 16:33 - CONCLUSION: Negative exam. No hemorrhage. Jose Antonio Hughes MD Chest X-Ray 05/15/17 0000 Signed Impressions: Service Date/Time: May 17:05 - CONCLUSION: No acute abnormality or significant interval change. Clifton Pedroza MD Procedures HUMBLE 05/18/17 Other Results Laboratory Tests Test 05/15/17 16:45 05/16/17 06:30 05/16/17 18:30 05/17/17 08:57 Neutrophils (%) (Auto) 63.5 % Lymphocytes (%) (Auto) 28.3 % Monocytes (%) (Auto) 7.1 % Eosinophils (%) (Auto) 0.6 % Basophils (%) (Auto) 0.5 % Neutrophils # (Auto) 4.9 TH/MM3 Lymphocytes # (Auto) 2.2 TH/MM3 Monocytes # (Auto) 0.5 TH/MM3 Eosinophils # (Auto) 0.0 TH/MM3 Basophils # (Auto) 0.0 TH/MM3 CBC Comment DIFF FINAL Differential Comment Prothrombin Time 9.4 SEC Prothromb Time International Ratio 0.9 RATIO Activated Partial Thromboplast Time 23.7 SEC Hemoglobin A1c 5.9 % Troponin I LESS THAN 0.02 NG/ML Triglycerides Level 36 MG/DL Cholesterol Level 251 MG/DL LDL Cholesterol 147 MG/DL HDL Cholesterol 96.8 MG/DL Cholesterol/HDL Ratio 2.59 RATIO Erythrocyte Sedimentation Rate 12 mm/hr C-Reactive Protein LESS THAN 0.29 MG/DL Vitamin B12 Level 407 PG/ML Folate 14.3 NG/ML Free Thyroxine 0.93 NG/DL Thyroid Stimulating Hormone 3rd Gen 0.355 uIU/ML White Blood Count 12.5 TH/MM3 Red Blood Count 4.13 MIL/MM3 Hemoglobin 12.2 GM/DL Hematocrit 37.1 % Mean Corpuscular Volume 89.7 FL Mean Corpuscular Hemoglobin 29.5 PG Mean Corpuscular Hemoglobin Concent 32.9 % Red Cell Distribution Width 13.3 % Platelet Count 234 TH/MM3 Mean Platelet Volume 7.7 FL Blood Urea Nitrogen 14 MG/DL Creatinine 0.72 MG/DL Random Glucose 147 MG/DL Total Protein 6.7 GM/DL Albumin 3.3 GM/DL Calcium Level 8.6 MG/DL Alkaline Phosphatase 69 U/L Aspartate Amino Transf (AST/SGOT) 12 U/L Alanine Aminotransferase (ALT/SGPT) 16 U/L Total Bilirubin 0.3 MG/DL Sodium Level 140 MEQ/L Potassium Level 3.5 MEQ/L Chloride Level 105 MEQ/L Carbon Dioxide Level 23.9 MEQ/L Anion Gap 11 MEQ/L Estimat Glomerular Filtration Rate 83 ML/MIN Objective Remarks GENERAL: NAD, A&Ox3 HEAD: Normocephalic. NECK: Supple, trachea midline. No lymphadenopathy. EYES: No scleral icterus. No injection or drainage. CARDIOVASCULAR: Regular rate and rhythm without murmurs, gallops, or rubs. RESPIRATORY: Breath sounds equal bilaterally. No accessory muscle use. GASTROINTESTINAL: Abdomen soft, non-tender, nondistended. MUSCULOSKELETAL: No cyanosis, or edema. SKIN: Warm and dry. NEURO: No focal neurological deficits Medications and IVs Current Medications Medications (Trade) Dose Ordered Sig/El Route Start Time Stop Time Status Last Admin (NS Flush) 2 ml BID IV FLUSH 05/15/17 21:00 3/10/18 20:03 (NS Flush) 2 ml UNSCH PRN IV FLUSH 05/15/17 18:30 (Proair Hfa Inh) 2 puff Q2H PRN INH 05/15/17 18:30 (CeleXA) 20 mg DAILY PO 05/16/17 09:00 05/17/17 08:05 (Miralax) 17 gm DAILY PO 05/16/17 09:00 05/17/17 08:06 Patient Own Medication PT OWN MED: MAGNES... DAILY PRN PO 05/15/17 19:00 Future Hold (Duoneb Neb) 1 ampule Q6HR WHILE AWAKE NEB NEB 05/15/17 20:00 05/18/17 09:18 (Deltasone) 20 mg BID PO 05/15/17 21:00 05/17/17 20:02 A/P Assessment and Plan (1) Migraine ICD Code: G43.909 - Migraine, unspecified, not intractable, without status migrainosus Status: Acute (2) TIA (transient ischemic attack) ICD Code: G45.9 - Transient cerebral ischemic attack, unspecified Status: Acute Assessment and Plan 57-year-old female admitted secondary to TIA versus complex migraine with left- sided weakness HUMBLE pending. Allergic reaction to Lipitor, Lipitor discontinued. Severe GI symptoms with use of aspirin. Patient declines further use of aspirin. Continue to monitor and Holter monitor. Neurology specialist following. PT saw her and no PT needed. TIA versus Migraine Left-sided weakness Neurology following EEG was normal HUMBLE found small PFO with left to right shunt not right to left, Can not tolerate Statin or Aspirin, recommended to go on Plavix by Neurology doctor Margarito also recommended to discharge Home. and follow in his office. Monitor for any recurrence of symptoms MRI is negative for CVA Statin allergy present Asthma Irritable bowel syndrome Ischemic bowel history Exacerbations overnight with use of aspirin Follow clinically Gastroesophageal reflux disease Nephrolithiasis Asymptomatic DVT prophylaxis SCDs Avoiding strong blood thinners for now given unclear etiology of neurologic deficit including TIA Discharge Planning Discharge Home today and follow with Neurology specialist Doctor Juvenal Pimentel. Vadim Clarke MD May 18, 2017 09:53
--- NOTE | 2017-05-18 10:05 | MB ---
cc: Richar Cruz MD DATE OF CONSULT: 05/18/2017 REASON FOR CONSULTATION: For transesophageal echocardiogram. HISTORY OF PRESENT ILLNESS: The patient is a very pleasant 57-year-old woman with no prior cardiac history who was driving and presented with acute left-sided numbness and vague central chest discomfort. She was scared, so she presented to the emergency department at [facility], where she was admitted for observation and all of her testing was unremarkable. Her symptoms resolved and she is currently asymptomatic without any residual chest discomfort, numbness, tingling, shortness of breath, lightheadedness, dizziness, or syncope. PAST MEDICAL HISTORY: Asthma, irritable bowel syndrome, ischemic bowel, GERD, nephrolithiasis. CURRENT MEDICATIONS: Celexa, MiraLAX, prednisone. ALLERGIES: MANY; PLEASE SEE THE CHART. PHYSICAL EXAMINATION: VITAL SIGNS: Afebrile, pulse 86, respiratory rate 16, BP 121/69, satting 97 on room air. GENERAL: A pleasant woman, in no distress. NECK: No JVD. LUNGS: Clear to auscultation bilaterally. CARDIOVASCULAR: Regular rate and rhythm. No murmurs appreciated. ABDOMEN: Benign. EXTREMITIES: No edema. LABORATORY DATA: White count 12.5, hematocrit 37.1, platelets 234. Sodium 140, potassium 3.5, chloride 105, bicarb 23.9, BUN 14, creatinine 0.72, glucose 147. INR is 0.7. EKG was read as sinus rhythm without significant ST changes. IMPRESSION: Questionable transient ischemic attack. The patient presents with questionable transient ischemic attack versus complex migraine. I have been asked to perform a transesophageal echocardiogram to exclude source of intracardiac embolism. I will do this today. The risks and benefits of the procedure were discussed and the patient agrees to proceed. She may also benefit from a loop recorder as an outpatient, but this can be discussed at a later date as well. If her transesophageal echocardiogram is fairly unremarkable, I will also have undergo a nuclear stress test, given her atypical chest pain. Further recommendations will be based on the above, but if her stress test is nonischemic, she could likely be discharged afterwards. Thank you again for the opportunity to participate in this patient's care. MD ANDRZEJ Marquez/AMAYA , 09:10 AM , 10:05 AM
[2017-05-18] MEDS ORDERED: LIDOCAINE HCL 1% PF 5 ML AMPULE ONE (10:13)
[2017-05-18] MEDS ORDERED: PROPOFOL 200 MG/20 ML AMP ONE (10:13)
--- NOTE | 2017-05-18 10:28 | HHI.PR ---
Subjective Remarks sr Objective Vital Signs Date Time Temp Pulse Resp B/P (MAP) Pulse Ox O2 Delivery O2 Flow Rate FiO2 05/18/17 09:21 97 21 05/18/17 07:22 86 05/18/17 07:22 97 Room Air 05/18/17 07:22 97.6 86 16 121/69 (86) 97 05/18/17 06:00 81 05/18/17 05:00 76 05/18/17 04:00 98.6 77 18 127/72 (90) 97 05/18/17 04:00 Room Air 05/18/17 04:00 77 05/18/17 03:00 82 05/18/17 02:00 81 05/18/17 01:00 79 05/18/17 00:00 98.0 71 18 122/71 (88) 96 05/18/17 00:00 77 05/18/17 00:00 Room Air 05/17/17 23:00 82 05/17/17 22:00 88 05/17/17 21:00 80 05/17/17 20:00 98.3 77 20 120/65 (83) 98 05/17/17 20:00 77 05/17/17 16:00 97.8 100 18 113/68 (83) 98 05/17/17 15:01 116 05/17/17 12:00 97.6 80 18 127/65 (85) 97 I/O 05/17/17 05/17/17 05/17/17 05/18/17 05/18/17 05/18/17 07:00 15:00 23:00 07:00 15:00 23:00 Intake Total 240 ml 900 ml 240 ml Balance 240 ml 900 ml 240 ml Intake Oral 240 ml 240 ml IV Total 900 ml # Voids 3 6 3 # Bowel Movements 0 Result Diagram: 05/17/17 0857 05/17/17 0857 Objective Remarks awake nl speech no new spells just had humble Assessment and Plan Assessment and Plan imp asa gi upset statin rash and voice change echo lipomatous septum for humble labs neg so far ldl inc for humble fu eeg - 05/18/[address] coto on humble a small pfo with left to r shunt not r to left eeg nl cannot tolerate statin nor asa start plavix get o/p 30 day holter fu hyper labs ok dc on plavix later today fu office Juvenal Pimentel MD May 18, 2017 10:28
[2017-05-18] MEDS ORDERED: CLOPIDOGREL 75 MG TAB PO SCH (10:30)
[2017-05-18] MEDS: predniSONE 20 MG TAB PO SCH (11:33)
[2017-05-18] MEDS: CITALOPRAM HYDROBROMIDE 20 MG TAB PO SCH (11:33)
[2017-05-18] MEDS: POLYETHYLENE GLYCOL 17 GM PKG PO SCH (11:37)
[2017-05-18] MEDS ORDERED: PLAV75TA29 PO (13:03)
--- NOTE | 2017-05-18 13:06 | HHI.DS ---
Discharge Summary Admission Date May 15, 2017 at 18:38 Discharge Date: May 18, 2017 Admitting Diagnosis TIA vs. complex migraine (1) Migraine ICD Code: G43.909 - Migraine, unspecified, not intractable, without status migrainosus Diagnosis: Principal Status: Acute (2) TIA (transient ischemic attack) ICD Code: G45.9 - Transient cerebral ischemic attack, unspecified Diagnosis: Principal Status: Acute Procedures HUMBLE Brief History - From Admission Ms. Ceja is a 57 year old female. She is in the hospital secondary to an acute onset of left arm and leg weakness. This persisted most of the night but has resolved by the time she is seen today. She has a history of atypical migraines with transient blindness that lasted a few minutes. She's never had such a degree of neurological deficit for migraines before. She reports that she was driving and she had an acute onset of a headache which shows not typical of onset of her migraines. After that she had a gradual onset of left arm and leg weakness which ended up resulting in facility. Imaging showed no signs of bleed, tumor, or stroke, including MRI of brain. Etiology may be atypical migraine versus TIA. No pain or headache described and patient is visited today. No persistence of neurological deficit. CBC/BMP: 05/17/17 0857 05/17/17 0857 Significant Findings Laboratory Tests Test 05/15/17 16:45 05/16/17 06:30 05/16/17 18:30 05/17/17 08:57 Prothrombin Time 9.4 SEC (9.8-11.6) Activated Partial Thromboplast Time 23.7 SEC (24.3-30.1) Troponin I LESS THAN 0.02 NG/ML Triglycerides Level 36 MG/DL (42-150) Cholesterol Level 251 MG/DL (120-200) LDL Cholesterol 147 MG/DL (0-99) HDL Cholesterol 96.8 MG/DL (40.0-60.0) Aspartate Amino Transf (AST/SGOT) 9 U/L (15-37) 12 U/L (15-37) Thyroid Stimulating Hormone 3rd Gen 0.355 uIU/ML (0.358-3.740) White Blood Count 12.5 TH/MM3 (4.0-11.0) Random Glucose 147 MG/DL (74-106) Albumin 3.3 GM/DL (3.4-5.0) Estimat Glomerular Filtration Rate 83 ML/MIN (>89) Imaging Last Impressions Brain MRI 05/16/171920 Signed Impressions: Service Date/Time: Tuesday, May 16, 2017 09:28 - CONCLUSION: Minimal, chronic white matter changes. Otherwise negative. Jose Antonio Hughes MD Neck CTA 05/15/[id number] Signed Impressions: Service Date/Time: May 16:48 - CONCLUSION: 1. Mild soft atherosclerotic plaquing at the origin of the right internal carotid causing some focal mild narrowing. No focal high-grade or significant stenosis is demonstrated. 2. Calcified plaques at the left carotid bifurcation and proximal left internal carotid artery without focal high-grade or significant stenosis. 1. Suresh Da Silva MD Head CTA 05/15/171637 Signed Impressions: Service Date/Time: May 16:48 - CONCLUSION: Normal examination for a patient of this age. Suresh Da Silva MD Head CT 05/15/171630 Signed Impressions: Service Date/Time: May 16:33 - CONCLUSION: Negative exam. No hemorrhage. Jose Antonio Hughes MD Chest X-Ray 05/15/17 0000 Signed Impressions: Service Date/Time: May 17:05 - CONCLUSION: No acute abnormality or significant interval change. Clifton Pedroza MD PE at Discharge GENERAL: NAD, A&Ox3 HEAD: Normocephalic. NECK: Supple, trachea midline. No lymphadenopathy. EYES: No scleral icterus. No injection or drainage. CARDIOVASCULAR: Regular rate and rhythm without murmurs, gallops, or rubs. RESPIRATORY: Breath sounds equal bilaterally. No accessory muscle use. GASTROINTESTINAL: Abdomen soft, non-tender, nondistended. MUSCULOSKELETAL: No cyanosis, or edema. SKIN: Warm and dry. NEURO: No focal neurological deficits Hospital Course This is a pleasant 57 y/o female who came to ER with acute onset of left arm and leg weakness, as per Neurology specialist ASA gave GI upset and Statin produce rash and voice change, Echo showed lipomatous septum for humble, laboratory Negative LDL recommended for HUMBLE. follow up HUMBLE. not yet cleared by Neurology specialist for discharge. she had allergic reaction to Lipitor and was discontinued. 05/18: Stable in her bedroom, already seen by her aquarium specialist Doctor Anthony status post EEG was normal HUMBLE found small PFO with left to right shunt not right to left, Can not tolerate Statin or Aspirin, recommended to go on Plavix by Neurology doctor Margarito also recommended to discharge Home. and follow in his office. no nausea or vomit or diarrhea. Assessment and Plan (1) Migraine ICD Code: G43.909 - Migraine, unspecified, not intractable, without status migrainosus Status: Acute (2) TIA (transient ischemic attack) ICD Code: G45.9 - Transient cerebral ischemic attack, unspecified Status: Acute Assessment and Plan 57-year-old female admitted secondary to TIA versus complex migraine with left- sided weakness HUMBLE pending. Allergic reaction to Lipitor, Lipitor discontinued. Severe GI symptoms with use of aspirin. Patient declines further use of aspirin. Continue to monitor and Holter monitor. Neurology specialist following. PT saw her and no PT needed. TIA versus Migraine Left-sided weakness Neurology following EEG was normal HUMBLE found small PFO with left to right shunt not right to left, Can not tolerate Statin or Aspirin, recommended to go on Plavix by Neurology doctor Margarito also recommended to discharge Home. and follow in his office. Monitor for any recurrence of symptoms MRI is negative for CVA Statin allergy present Asthma Irritable bowel syndrome Ischemic bowel history Exacerbations overnight with use of aspirin Follow clinically Gastroesophageal reflux disease Nephrolithiasis Asymptomatic DVT prophylaxis SCDs Avoiding strong blood thinners for now given unclear etiology of neurologic deficit including TIA Discharge Planning Discharge Home today and follow with Neurology specialist Doctor Juvenal Pimentel. Pt Condition on Discharge: Good Discharge Disposition: Discharge Home Discharge Time: > 30 minutes Discharge Instructions DIET: Follow Instructions for: Heart Healthy Diet Activities you can perform: Regular-No Restrictions Vadim Clarke MD May 18, 2017 13:06
--- NOTE | 2017-05-18 16:09 | ECHRPT ---
Indication: PFO CONCLUSIONS Normal LV function. PFO with left to right shunting seen by color Dopler;no right to left shunting seen via agitated lauren ine. BP: / HR: Rhythm: Sinus Technical Quality: Medications Complications Proc. Components FINDINGS LEFT VENTRICLE The left ventricular systolic function is hyperdynamic with an estimated ejection fraction in the ra nge of 65- 70%. ATRIAL APPENDAGES Normal left atrial appendage size with no evidence of thrombus formation. The velocities in the left atrial appendage are normal. ATRIAL SEPTUM A patent foramen ovale is present with a [id number] shunt demonstrated by color flow Doppler interrogation. No Right to Left atrial level shunt is observed with agitated saline contrast administration. MITRAL VALVE Mild mitral valve regurgitation. AORTIC VALVE Trileaflet aortic valve. No aortic valve stenosis or regurgitation. VESSELS Trivial pulmonary valve regurgitation. Richar Cruz MD (Electronically Signed) Final Date:18 May 2017 16:08
[2017-05-19 14:44] LABS: ANA SCREEN NEG (NEG)
--- NOTE | 2017-05-19 21:13 | HM ---
Date Performed: 05/16/2017 Time Performed: 22:35:00 HOOKUP DATE: 05/16/17 10:35:00 PM Fri ANALYSIS START TIME: 05/16/2017 10:40:00 PM ANALYSIS END TIME: 05/17/2017 7:06:40 PM PATIENT AGE: 57 PATIENT HEIGHT: 61 PATIENT WEIGHT: 134 DRUG LIST PATIENT DIAGNOSIS: tia vs complex migraines TEST NARRATIVE: The patient's average heart rate was 95 BPM. Heart rates greater than 120 B PM were noted 4% of the time. No episodes of bradycardia were noted. No pauses exceeding 2.0 sec onds were noted. 23 ventricular ectopics, which represented < 1% of the total beat count, were no marissa. The highest ventricular ectopic frequency occurred from 04:00 AM to 05:00 AM Sat. During this time 6 VE(s) occurred. Ventricular ectopics were observed as 23 isolated beat(s) only. No couplets or runs were noted. 2094 supraventricular ectopics, which represented 2% of the total beat count, were noted. The highest supraventricular ectopic frequency occurred from 09:00 AM to 10:00 AM Sat. During this time 280 SVE(s) occurred. Multiple episodes of ST depression (defined as -1.0 mm or more) were noted in channel 1. The maximum depression of -1.8 mm occurred at 09:07:45 AM Sat. Mult iple episodes of ST depression (defined as -1.0 mm or more) were noted in channel 2. The maximum de pression of -1.7 mm occurred at 03:20:31 PM Sat. No episodes of ST depression (defined as -1.0 mm or more) were noted in channel 3. NO DIARY GIVEN TO PATIENT TEST INTERPRETATION: Patient undergoes a holter monitor for evaluation of her neurologic symptom s. She's in Sinus rhythm throughout the tracing, but there are premature atrial contractions and fairly frequent episodes of nonsustained supraventricular tachycardia, with the longest episode lasting about 12 beats. Rare PVCs are noted, but theres no complex ventricular ectopy. No rubens arrhythmias are noted. No diary is pro vided Conclusions: Holter monitor showing sinus rhythm and frequent episodes of sinus tachycardia of 154 bpm. Brief episodes of nonsustained supraventricular tachycardia with no other significant tachy or rubens arrhythmias noted Rare PVCs but no complex ventricular ectopy No diary provided Signed by : Leisa Batres
[2017-05-19 22:08] LABS: ALB/GLOB RATIO (SPE) 1.67 (1.39-2.23)
[2017-05-21 13:51] LABS: DRVVT 1:1 MIX ND (CORRECTED); DRVVT CONFIRM ND (NEGATIVE); HEXAGONAL PHASE CONFIRM ND (NEGATIVE)
[2017-05-21 19:54] LABS: FACTOR VIII(8) ACTIVITY 213 (50-180)
[2017-05-22 03:51] LABS: ANTI-THROMBIN III ACT 134 (80-120)
[2017-05-22 11:22] LABS: PROTEIN C ACTIVITY 141 % (70 - 150); PROTEIN S ACTIVITY 123 % (65 - 160)
[2017-05-22 13:19] LABS: METHYLMALONIC ACID 0.23 nmol/mL (<=0.40)
[2017-05-22 16:39] LABS: CARDIOLIPIN IGG AB <9.4 GPL; CARDIOLIPIN IGM AB <9.4 MPL
== END 2017-05-18 17:35 | disposition home or self-care (01) ==
LOC: PHED 16:27 → PHEDA 18:38 → PH3A 22:32 → HCIS 05-17 19:14
PROVIDERS: ADMIT Internal Medicine; ATTEND Internal Medicine
DX: G43.909 Migraine, unspecified, not intractable, without status migrainosus (principal); G45.9 Transient cerebral ischemic attack, unspecified; I49.1 Atrial premature depolarization; I47.1 Supraventricular tachycardia; K21.9 Gastro-esophageal reflux disease without esophagitis; N20.0 Calculus of kidney; K58.9 Irritable bowel syndrome, unspecified; R21 Rash and other nonspecific skin eruption; Q21.1 Atrial septal defect; Z87.11 Personal history of peptic ulcer disease; Z23 Encounter for immunization
CPT/HCPCS: 70450; 70496; 70498; 70551; 71045; 80048; 80053; 80061; 81240; 81241; 82607; 82746; 82948; 83036; 83921; 84165; 84425; 84439; 84443; 84450; 84460; 84484; 85025; 85027; 85240; 85300; 85303; 85306; 85610; 85613; 85652; 85730; 86038; 86140; 86147; 86592; 86850; 86900; 86901; 90686; 93005; 93225; 93226; 93306; 93312; 93320; 93325; 94640; 94664; 95819; 96361; 96365; 96375; 97162; 99291; G0378; G8987; G8988; J1815; J2765; J2930; J7030; J7512; Q9967; Q2038